=== PATIENT | female | born 1940 | race Caucasian/White ===

== ENCOUNTER 2021-02-26 20:31 | Inpatient (IN) | payer MEDICARE, OTHER ==
[~2021-02-26] VITALS: Ht 167.6 cm; Wt 59.1 kg
--- NOTE | 2021-02-26 22:37 | PHYS DOC ---
Past History Past Medical History: Arthritis, COPD Past Medical History Severe osteoporosis, insomnia Past Surgical History: Hip Replacement, Knee Replacement Additional Past Surgical Histo: L HIP REPAIR R HIP REPAIR Smoking: Cigarettes General Adult EDM: Chief Complaint: MECHANICAL FALL HPI: HPI: .. " Fell.. and hurt my wrist..Lt. .. I was on my walker.. and arnold tripped.. ".."Just have been home a few days.. I had been in rehab.. after my hip surgery..." Patient is a 80 year old female who presents with above hx and complaints trip, fall and Lt. wrist injury. Patient has an obvious closed fracture left wrist. Patient left hand distal cap refill, sensation is equal to her right hand. Injury occurred just prior to arrival. Patient states he was not dizzy, had syncope or had any dysrhythmia prior to the fall. Patient states she was using her walker. Patient denies hitting her head or any neuro changes. is at bedside states her mental status is at baseline. Patient is right-hand dominant. During the exam of patient in the hallway is noted that she had tenderness on her left hip and pelvis area. X-rays did reveal a ramus fracture. Patient's distal sensation in her left leg was equal to her right leg. Movement of left leg did increase pain in her pelvic area. Patient has history of COPD and tobacco use.. History of insomnia and marked osteopenic. Patient normally follows with Dr. Stern as a primary and for any orbital repair follows with at [facility] on the [place]. Review of Systems: Review of Systems: Constitutional: Denies fever or chills Eyes: Denies change in visual acuity HENT: Denies nasal congestion or sore throat Respiratory: Denies cough or shortness of breath Cardiovascular: Denies chest pain or edema GI: Denies abdominal pain, nausea, vomiting, bloody stools or diarrhea : Denies dysuria Musculoskeletal: Complains of left wrist fracture and the left hip and pelvis pain Integument: Denies rash Neurologic: Denies headache, focal weakness or sensory changes Endocrine: Denies polyuria or polydipsia Lymphatic: Denies swollen glands Psychiatric: Denies depression or anxiety Family History: Family History: Noncontributory to presentation Current Medications: Current Meds: See nursing for home meds Allergies: Allergies: Allergic to latex, penicillin and Ambien Physical Exam: PE: Constitutional: in acute distress, non-toxic appearance. [] HENT: Normocephalic, atraumatic, bilateral external ears normal, oropharynx moist, no oral exudates, nose normal. [] Eyes: PERRLA, EOMI, conjunctiva normal, no discharge. [] Neck: Normal range of motion, no tenderness, supple, no stridor. [] Cardiovascular:Heart rate regular rhythm, no murmur, PMI slightly to the left Lungs & Thorax: Bilateral breath sounds equal apex with scattered wheezes on auscultation [] Abdomen: Bowel sounds normal, soft, no tenderness, no masses, no pulsatile masses. Old surgery scar Skin: Warm, dry, no erythema, no rash. Poor turgor. Contusion ecchymosis left wrist contusion ecchymosis right knee and left hip Back: No tenderness, no CVA tenderness. [] Extremities: Marked left wrist and left hip tenderness, no cyanosis, no clubbing, , contusion right knee. Old surgery scars right knee, right hip Neurologic: Alert and oriented X 3, moves all extremities but limited in areas of fractures, distal sensory, no focal deficits noted. [] Psychologic: Affect anxious, judgement normal, mood normal. [] Current Patient Data: Vital Signs: Vital Signs Date Time Temp Pulse Resp B/P (MAP) Pulse Ox O2 Delivery O2 Flow Rate FiO2 02/26/21 21:46 97.8 69 20 142/100 97 EKG: EKG: [] Radiology/Procedures: Radiology/Procedures: [[address] [address] IMAGING REPORT Signed PATIENT: HEBER TAVERASNACCOUNT: [id number] : 1940 LOCATION: ER AGE: 80 SEX: F EXAM STATUS: REG ER ORD. PHYSICIAN: BERNICE ALFORD MD REASON: FALL PROCEDURE: LEFT FEMUR XRAY EXAMINATION: Left hip, left femur and left wrist radiographs. VIEWS: 3 views of the left hip, 4 views of the left femur and 3 views of the left wrist COMPARISON: None INDICATION:80 years, Female, fall. FINDINGS: Left hip: Acute displaced fracture of the left superior and inferior pubic rami. Severe left hip osteoarthritis. Right hip arthroplasty. Moderate to severe bilateral sacroiliac joints osteoarthritis. Severe pubis symphysis osteoarthritis. Diffuse osteopenia. No dislocation or subluxation. Popcorn calci fication in the right hemipelvis, likely related to calcified uterine fibroid. Left femur: No acute fracture, dislocation or subluxation. Total knee arthroplasty without hardware failure. Diffuse osteopenia. Mild soft tissue swelling. Left wrist: Acute displaced impacted and comminuted distal radial fracture with extension to the articular surface. No dislocation or subluxation. Diffuse soft tissue swelling about the wrist. Severe first carpometacarpal osteoarthritis. IMPRESSION: 1. Acute displaced fracture of the left superior and inferior pubic rami. 2. Acute displaced impacted and comminuted distal radial fracture Electronically signed by: Jeremy Dhillon MD (02/26/2021 10:38 PM) [facility] DICTATED AND SIGNED BY: JEREMY DHILLON MD DATE: 02/26/212229 CC: BERNICE ALFORD MD; MARISSA STERN MD ~[facility]0 0 ][place] [address] IMAGING REPORT Signed PATIENT: HEBER TAVERASNACCOUNT: [id number] : 1940 LOCATION: [address] [place] [address] AGE: 80 SEX: F EXAM STATUS: ADM IN ORD. PHYSICIAN: BERNICE ALFORD MD REASON: fall PROCEDURE: PORTABLE CHEST 1V EXAM: XR CHEST 1V 02/26/2021 12:04 AM CLINICAL INDICATION: Fall COMPARISON: None TECHNIQUE: AP upright view of the chest FINDINGS: The heart appears normal in size. There are calcifications the thoracic aorta. The lungs are hyperexpanded. There are chronic interstitial changes. Calcified granulomas with adjacent scarring seen in the left apex. There is no pleural effusion or pneumothorax. No acute osseous abnormality. IMPRESSION: 1. No acute cardiopulmonary abnormality. 2. Sequela of granulomatous disease with calcified granulomas and scarring in the left apex. 3. Findings of COPD. Electronically signed by: Diamond Campo MD (02/27/2021 1:38 AM) [id number] DICTATED AND SIGNED BY: DIAMOND CAMPO MD DATE: 02/27/21 0136 CC: KY SIMMONS MD; BERNICE ALFORD MD; MARISSA STERN MD ~[facility]0 0 Heart Score: C/O Chest Pain: N/A HEART Score for Chest Pain: HEART Score for Chest Pain Response (Comments) Value History Slighlty/Non-Suspicious 0 ECG Normal 0 Age > 65 2 Risk Factors 1 or 2 Risk Factors 1 Troponin < Normal Limit 0 Total 3 Risk Factors: Risk Factors: DM, Current or recent (<one month) smoker, HTN, HLP, family h istory of CAD, obesity. Risk Scores: Score 0 - 3: 2.5% MACE over next 6 weeks - Discharge Home Score 4 - 6: 20.3% MACE over next 6 weeks - Admit for Clinical Observation Score 7 - 10: 72.7% MACE over next 6 weeks - Early Invasive Strategies Course & Med Decision Making: Course & Med Decision Making Pertinent Labs and Imaging studies reviewed. (See chart for details) Patient and requesting patient be transferred to [facility] for pain management and orthopedic consult. Declined transfer to any other hospital in area. Would agree to admission here until bed would become available at [facility]. [facility] transfer Dr. Weldon and [facility]' coordinator advised no hospital beds available and the entire [facility] systems. Transfer declined at this time. Dr. Simmons advised he would accept patient until possible opening of bed at [facility]. For pain management. Impression: 1. Trip and fall 2. Comminuted fracture left radius 3. Left pelvic displaced ramus fracture 4. Mild anemia 11.5 5. Mild elevation alk phos 145 6. Malnutrition albumin 2.8 7. History of COPD and tobacco use 8. Marked Osteopenia [] Dragon Disclaimer: Dragon Disclaimer: This electronic medical record was generated, in whole or in part, using a voice recognition dictation system. Departure Departure: Referrals: MARISSA STERN MD (PCP) Scripts Oxycodone Hcl/Acetaminophen (PERCOCET 5-325 MG TABLET ) 1 Each Tablet 1 TAB PO PRN Q6HRS PRN for PAIN, #30 TAB Prov: BERNICE ALFORD MD 02/26/21 Dragon Disclaimer This chart was dictated in whole or in part using Voice Recognition software in a busy, high-work load, and often noisy Emergency Department environment. It may contain unintended and wholly unrecognized errors or omissions. BERNICE ALFORD MD Feb 26, 2021 22:37
--- NOTE | 2021-02-26 22:40 | RAD ---
EXAMINATION: Left hip, left femur and left wrist radiographs. VIEWS: 3 views of the left hip, 4 views of the left femur and 3 views of the left wrist COMPARISON: None INDICATION:80 years, Female, fall. FINDINGS: Left hip: Acute displaced fracture of the left superior and inferior pubic rami. Severe left hip oste oarthritis. Right hip arthroplasty. Moderate to severe bilateral sacroiliac joints osteoarthritis. Se deidre pubis symphysis osteoarthritis. Diffuse osteopenia. No dislocation or subluxation. Popcorn calci fication in the right hemipelvis, likely related to calcified uterine fibroid. Left femur: No acute fracture, dislocation or subluxation. Total knee arthroplasty without hardware f ailure. Diffuse osteopenia. Mild soft tissue swelling. Left wrist: Acute displaced impacted and comminuted distal radial fracture with extension to the sally cular surface. No dislocation or subluxation. Diffuse soft tissue swelling about the wrist. Severe fi rst carpometacarpal osteoarthritis. IMPRESSION: 1. Acute displaced fracture of the left superior and inferior pubic rami. 2. Acute displaced impacted and comminuted distal radial fracture Electronically signed by: Pavan Dhillon MD (02/26/2021 10:38 PM) [facility]
[2021-02-26] MEDS ORDERED: oxyCODONE/APAP 5/325 1 TAB TABLET PO ONE (22:45)
[2021-02-26] MEDS ORDERED: OXYC1TAB15 PO (22:52)
[2021-02-26] MEDS ORDERED: IV RINGERS SOLUTION,LACTATED 1,000 ML IV SCH (23:30)
[2021-02-26] MEDS ORDERED: ONDANSETRON PF 4 MG/2 ML VIAL. IVP PRN (23:45)
[2021-02-26] MEDS ORDERED: oxyCODONE/APAP 5/325 1 TAB TABLET PO PRN (23:45)
[2021-02-26] MEDS ORDERED: ACETAMINOPHEN 325 MG TABLET PO PRN (23:45)
--- NOTE | 2021-02-27 00:46 | EKG ---
[address] [address] Test Date: 2021-02-27 Test Time: 00:17:01 Pat Name: AIXA TAVERAS Department: Room: Gender: F Scrub Woman: : 1940 Requested By: BERNICE ALFORD Order Number: [id number] Reading MD: Measurements Intervals [place] Rate: 100 P: 46 TX: 130 QRS: 37 QRSD: 98 T: 26 QT: 348 QTc: 452 Interpretive Statements SINUS RHYTHM R-S TRANSITION ZONE IN V LEADS DISPLACED TO THE RIGHT OTHERWISE NORMAL ECG RI6.02 No previous ECG available for comparison
[2021-02-27 00:52] LABS: BASO % 0 % (0-3); EOS % 0 % (0-3); HEMOGLOBIN 11.5 g/dL (12.0-15.5); LYMPH # 0.5 x10^3/uL (1.0-4.8); LYMPH % 5 % (24-48); MEAN CORPUSCULAR HEMOGLOBIN 28 pg (25-35); MEAN CORPUSCULAR HGB CONC 33 g/dL (31-37); MEAN CORPUSCULAR VOLUME 84 fL (79-100); MONO # 0.4 x10^3/uL (0.0-1.1); MONO % 4 % (0-9); NEUT # 9.2 x10^3uL (1.8-7.7); NEUT % 90 % (31-73); PLATELET COUNT 331 x10^3/uL (140-400); RED BLOOD COUNT 4.17 x10^6/uL (3.50-5.40); RED CELL DISTRIBUTION WIDTH 15.3 % (11.5-14.5); WHITE BLOOD COUNT 10.2 x10^3/uL (4.0-11.0)
[2021-02-27 00:59] LABS: CALCIUM 8.4 mg/dL (8.5-10.1); CREATININE 0.8 mg/dL (0.6-1.0); GFR 69.2
[2021-02-27 01:12] LABS: ALBUMIN 2.8 g/dL (3.4-5.0); DIRECT BILIRUBIN 0.1 mg/dL (0.0-0.2); MAGNESIUM 1.9 mg/dL (1.8-2.4); TOTAL BILIRUBIN 0.4 mg/dL (0.2-1.0); TOTAL PROTEIN 6.5 g/dL (6.4-8.2)
[2021-02-27 01:27] VITALS: BP 147/77
--- NOTE | 2021-02-27 01:32 | NUR ---
PT ADMITTED TO [facility] VIA EMS ACCOMPANIED BY NURSING COMIC BOOK WRITER. PT ASSITED X4 FROM GURNEY TO BED. PT AOX4. PT IS POOR HISTORIAN AND CAN NOT REMEMBER HOME MEDICATION LIST. PT STATE "MY WILL HAVE HIS LIST, BUT HE WILL BE ASLEEP TILL MORNING." PT HAS NO COMPLAINTS OF PAIN AT THIS TIME. POC DISCUSSED W/ VERBALIZED UNDERSTANDING. PT RESTING COMFORTABLY IN BED W/ CALL LIGHT IN REACH.
--- NOTE | 2021-02-27 01:40 | RAD ---
EXAM: XR CHEST 1V 02/26/2021 12:04 AM CLINICAL INDICATION: Fall COMPARISON: None TECHNIQUE: AP upright view of the chest FINDINGS: The heart appears normal in size. There are calcifications the thoracic aorta. The lungs a re hyperexpanded. There are chronic interstitial changes. Calcified granulomas with adjacent scarring seen in the left apex. There is no pleural effusion or pneumothorax. No acute osseous abnormality. IMPRESSION: 1. No acute cardiopulmonary abnormality. 2. Sequela of granulomatous disease with calcified granulomas and scarring in the left apex. 3. Findings of COPD. Electronically signed by: Diamond Campo MD (02/27/2021 1:38 AM) [id number]
[2021-02-27] MEDS: IPRATRPIUM/ALBUTEROL 0.5/2.5MG 3 ML NEBU. NEB SCH ×3 (08:00→16:00)
[2021-02-27] MEDS ORDERED: oxyCODONE/APAP 5/325 1 TAB TABLET PO PRN (09:15)
[2021-02-27] MEDS: CALCIUM CARB/VIT D3 500/200 TABLET PO SCH ×2 (10:17→17:14)
[2021-02-27] MEDS: CHOLECALCIFEROL (VITAMIN D3) 1,000 UNIT TABLET PO SCH (10:17)
[2021-02-27 11:19] VITALS: BP 106/70
--- NOTE | 2021-02-27 13:33 | NUR ---
NURSING NOTE SPOKE WITH DR ALBARADO TO HAVE HIM REVIEW PT XRAY, STATES HE DOES NOT THINK PT NEEDS SURGERY, TO SPLINT AND FOLLOW UP OUTPATIENT WITH HER ORTHOPEDIC DOCTOR. PAIN CONTROL. PT DTR FREDY AND AIDA REFUSING REHAB OR INTERMEDIATE FACILITY. DR SIMMONS NOTIFIED. PLAN TO DC HOME WITH HOME HEALTH TOMORROW. GREER VEGA.
--- NOTE | 2021-02-27 14:00 | NUR ---
NURSING NOTE WEIGHT BEARING ESTHER PER DR ALBARADO, WEIGHT BEARING TOLERATED. GREER VEGA.
[2021-02-27] MEDS ORDERED: OXYB5TAB10 PO (14:39)
[2021-02-27] MEDS ORDERED: LEVO75CA4 PO (14:39)
[2021-02-27] MEDS ORDERED: DOXY100C3 PO (14:39)
[2021-02-27] MEDS ORDERED: LACT1CAP6 PO (14:39)
[2021-02-27 15:59] VITALS: BP 123/51
--- NOTE | 2021-02-27 17:34 | NUR ---
NURSING NOTE ORTHOPEDIC PT HAS FOLLOW UP ALREADY SCHEDULED PRIOR TO THIS HOSPITALIZATION WITH DR COYNE AT [facility] [phone] ON . PT DTR WOULD LIKE US TO CALL AND SEE ABOUT MOVING HER APPT CLOSER. THIS NURSE ATTEMPT TO CALL, OFFICE CLOSED. WILL FOLLOW UP TOMORROW AND PASS ALONG IN REPORT. GREER VEGA.
--- NOTE | 2021-02-27 19:20 | HP ---
ADMIT DATE: 02/27/2021 HISTORY OF PRESENT ILLNESS: A 80-year-old female brought in through the emergency room. Apparently, she tripped at her walker and ____ few days, had been in rehab after some hip surgery. However, the patient when she came in through the Emergency Room, noted a closed fracture of her left wrist. The patient otherwise is right-hand dominant, but had this fracture of the left wrist. She was also noted to have some problems with her inferior and superior rami, where they were fractured as well. Her was at the base of her bed and is very attentive. The patient has severe tenderness to her left hip and x-rays did reveal a ramus fracture. The patient had normal sensation to her right leg and left leg, did have increased pain in her pelvic area as well as other factors as noted above. PAST MEDICAL HISTORY: Insomnia. She has a history of osteopenia, throat cancer, hypothyroidism, influenza vaccination up to date. ALLERGIES: TO LATEX, PENICILLIN, AND AMBIEN. SOCIAL HISTORY: No smoking, alcohol or drug use. Full code. REVIEW OF SYSTEMS: The patient outside of her hip pain and wrist pain, denies any chest pain, shortness of breath, abdominal pain. Denies any melena, hematochezia, hematemesis, and neurologically baseline for her, seems like a very pleasant patient. PHYSICAL EXAMINATION: GENERAL: On exam, this is a pleasant white female, in moderate amount of distress. The patient otherwise is a pleasant female. Speech fluent, spontaneous, appropriate. VITAL SIGNS: The patient's blood pressure is that of 142/100, came down to 123/51, respiratory rate 16, pulse 90, afebrile, 95% on room air. HEENT: Her head was atraumatic, normocephalic. Eyes: PERRLA. Mouth and throat normal. NECK: Supple. LUNGS: Clear. CARDIOVASCULAR: Regular sinus rhythm, S1, S2. ABDOMEN: Soft, nontender, no rebounding or any guarding. Positive bowel sounds. No hepatosplenomegaly noted. EXTREMITIES: No clubbing, cyanosis, nor edema. NEUROLOGIC: The patient was alert and baseline and oriented x3. The patient had her left wrist bandaged in a splint and of course had pain in her hips. The patient's x-rays showed acute displaced fracture of the left superior and inferior pubic rami. There was an acute, displaced, impacted and comminuted distal radial fracture as noted. The comminuted distal radial fracture was relayed on to Dr. Cabrera, noted orthopedic surgeon, who felt the patient was stable in the splint and could be seen as an outpatient. The right hip x-ray demonstrated arthroplasty, moderate to severe bilateral sacroiliac joint osteoarthritis and severe pubic ramus osteoarthritis, diffuse osteopenia noted. LABORATORY DATA: The patient's labs were white count 10, hemoglobin 11 and hematocrit 35. The patient's sodium and potassium are 136 and 4. Glucose 120. Albumin low at 2.8. TSH was normal. Serology shows COVID negative. IMPRESSION: Acute displaced fracture of the left superior and inferior pubic rami, acute displaced impacted and comminuted distal radial fracture, severe protein malnutrition. The patient will be monitored carefully and make further evaluation on her as indicated, as noted. Discussed case with Dr. Cabrera. Chest x-ray showed some old granulomatous disease, but nothing consistent with any acute findings noted. PITO/PEPITO DR: Jasmin TID: [id number]
[2021-02-27] MEDS ORDERED: IPRATRPIUM/ALBUTEROL 0.5/2.5MG 3 ML NEBU. NEB PRN (19:30)
[2021-02-27 19:53] VITALS: BP 122/60
[2021-02-27] MEDS: OXYBUTYNIN CHLORIDE 5 MG TABLET PO SCH (20:40)
[2021-02-27] MEDS: LACTOBACILLUS RHAMNOSUS GG 1 CAPSULE. PO SCH (20:41)
[2021-02-27] MEDS: traMADol 50 MG TABLET PO PRN (20:41)
[2021-02-28] MEDS ORDERED: LEVOTHYROXINE 75 MCG TABLET PO SCH (06:00)
[2021-02-28] MEDS: traMADol 50 MG TABLET PO PRN ×2 (06:08→12:54)
[2021-02-28 06:23] VITALS: BP 134/75
[2021-02-28] MEDS: OXYBUTYNIN CHLORIDE 5 MG TABLET PO SCH ×2 (07:30→12:54)
[2021-02-28] MEDS: CALCIUM CARB/VIT D3 500/200 TABLET PO SCH (07:30)
[2021-02-28] MEDS: LACTOBACILLUS RHAMNOSUS GG 1 CAPSULE. PO SCH (07:30)
[2021-02-28] MEDS: CHOLECALCIFEROL (VITAMIN D3) 1,000 UNIT TABLET PO SCH (07:30)
--- NOTE | 2021-02-28 09:58 | DISCH ---
HOME HEALTH DISCHARGE/MEDS DISCHARGE INFORMATION: Discharge Date: Feb 28, 2021 Final Diagnosis: Problems Medical Problems: (1) Pelvic fracture Status: Acute (2) Wrist fracture Status: Acute Condition on Discharge: Stable HOME HEALTH: Face to Face: I certify this patient is under my care and that I, or a nurse practitioner or physician's preschool teacher assistant working with me, had a face to face encounter that meets the physician face to face encounter requirements with this patient on February 28, 2021. Medical Condition(s): Dementia, FX Retirement For: Assess Cardiopulm Status, Assess & Educate Safety, Assess/Skilled Observatio, Medication Management, Pain Management Physical Therapy For: Evalulation/Treatment Occupational Therapy For: Evaluation/Treatment Homebound Status Met By: Poor coordination w/ amb., Unsteady balance w/ amb,, Extreme weakness w/ amb., Poor cognition, Unable to negotiate home POST DISCHARGE ORDERS: Activity Instructions for Disc: Activity as tolerated DIET AFTER DISCHARGE: Regular CERTIFICATION STATEMENT: Certification Statement: Based on the above finding, I certify that this patient is confined to the home and needs intermittent halfway care, physical therapy and/or speech therapy, or continues to need occupational therapy.~ This patient is under my care, and I have initiated the establishment of the plan of care.~ This patient will be followed by myself or a community physician who will periodically review the plan of care. DISCHARGE MEDICATIONS: Home Meds Reported Medications Lactobacillus Acidophilus (PROBIOTIC) 1 Each Capsule, 1 CAP PO BID for . for 10 Days, #20 CAP 0 Refills 02/27/21 Oxybutynin Chloride (OXYBUTYNIN CHLORIDE) 5 Mg Tablet, 1 TAB PO TID for ., #60 TAB 11 Refills 02/27/21 Levothyroxine Sodium (Levothyroxine) 75 Mcg Capsule, 75 MCG PO DAILY for THYROID, CAP 02/27/21 Discontinued Reported Medications Doxycycline Hyclate (DOXYCYCLINE HYCLATE) 100 Mg Capsule, 1 CAP PO BID for ., #14 CAP 02/27/21 [place] SIMMONS MD Feb 28, 2021 09:58
[2021-02-28 10:07] VITALS: BP 104/65
--- NOTE | 2021-02-28 11:35 | NUR ---
NURSING NOTE EDUCATION FOR FAMILY PT DICKSON MET THIS RN AT FRONT DOOR TO DRESS CUTTER HER PAIN MEDICATION PRESCRIPTION TO FILL IT ON YANCY PRIOR TO PT DISCHARGING HOME. PT GIVEN EXTENSIVE EDUCATION ABOUT IMPORTANCE OF X2 ASSIST TRANSFERS AND THE IMPORTANCE OF PT NOT LAYING IN BED ALL DAY FOR STRENGTHENING PURPOSES. PT GIVEN DISCHARGE INFORMATION AND FINGER EXERCISE FROM JOHN FOR HER IMMOBILIZED WRIST. PT GIVEN PACKET FOR ORTHO FOLLOW UP WITH XRAY CD AND REPORTS. ST [facility] CONSULTED PER HEIDY BOSS REFERRAL SENT. THEY WILL CONTACT PT. PT STATES THEY HAVE A HOSPITAL BED, STAIR LEFT, AND WALK IN SHOWER ALREADY IN THEIR HOME AND IT IS READY FOR PT TO COME HOME. EMS TRANSFER ORGANIZED AND SET UP FOR 3PM TODAY TRANSFER HOME. GREER VEGA.
--- NOTE | 2021-02-28 12:06 | NUR ---
NURSING NOTE ORTHO APPOINTMENT AT 1:15PM [address] [place] [address] [address] ON 6TH FLOOR
--- NOTE | 2021-02-28 15:07 | NUR ---
NURSING NOTE DISCHARGE PT DISCHARGED HOME VIA EMS ACCOMPANIED BY EMS PERSONNEL. PT DICKSON CALLED BY THIS RN TO NOTIFY HIM OF DISCHARGE. PT GIVEN EXTENSIVE DISCHARGE INSTRUCTION. PT HAS FOLLOW UP WITH HER ORTHO DOCTOR ON WEDNESDAY. PLEASE SEE OTHER NOTES FROM THIS RN. GREER VEGA.
== END 2021-02-28 15:09 | disposition home health service (06) | DRG 542 ==
LOC: ER 20:31 → 1 SOUTH 02-27 01:08 → INTOOBSV 02-27 01:08 → OBSVTOIN 02-27 01:09
PROVIDERS: ADMIT Family Medicine; ATTEND Family Medicine
PROC: 2W3DX1Z Immobilization of Left Lower Arm using Splint (ICD-10-PCS; principal; 2021-02-27)
DX: M80.052A Age-related osteoporosis with current pathological fracture, left femur, initial encounter for fracture (principal); E43 Unspecified severe protein-calorie malnutrition; D64.9 Anemia, unspecified; D71 Functional disorders of polymorphonuclear neutrophils; E03.9 Hypothyroidism, unspecified; M80.032A Age-related osteoporosis with current pathological fracture, left forearm, initial encounter for fracture; J44.9 Chronic obstructive pulmonary disease, unspecified; W01.0XXA Fall on same level from slipping, tripping and stumbling without subsequent striking against object, initial encounter; Z85.819 Personal history of malignant neoplasm of unspecified site of lip, oral cavity, and pharynx; Z87.891 Personal history of nicotine dependence; Z96.649 Presence of unspecified artificial hip joint; Z96.659 Presence of unspecified artificial knee joint; Z88.0 Allergy status to penicillin; Z91.040 Latex allergy status; Z68.21 Body mass index [BMI] 21.0-21.9, adult; Z20.822 Contact with and (suspected) exposure to COVID-19; Y93.89 Activity, other specified; Y92.89 Other specified places as the place of occurrence of the external cause; Y99.8 Other external cause status
CPT/HCPCS: 36415; 71045; 73110; 73502; 73552; 80048; 80076; 82550; 83735; 83880; 84443; 84484; 85025; 87426; 93005; G0238; G0378; G0379; U0003; 97535

== ENCOUNTER → 2021-03-15 | Emergency (ER) | payer MEDICARE, OTHER ==
[~2021-03-15] VITALS: Ht 167.6 cm; Wt 61.8 kg
[~2021-03-15] MED LIST: ADENOSINE 6 MG/2 ML VIAL IV ONE; ASPIRIN CHEWABLE 81 MG TABLET. PO ONE; DOXY100C3 PO; HEPARIN 25,000UTS/250ML PREMIX 250 ML IV ONE; HEPARIN 25,000UTS/250ML PREMIX 250 ML IV PRN; HEPARIN for IV BOLUS 10,000 UNIT/10 ML VIAL. IV ONE; HEPARIN for IV BOLUS 10,000 UNIT/10 ML VIAL. IV PRN; IOHEXOL 300 MG/ML 75 ML VIAL. IV ONE; IV NORMAL SALINE 1,000ML 1,000 ML IV ONE; IV NORMAL SALINE 250ML 250 ML ONE; IV RINGERS SOLUTION,LACTATED 1,000 ML IV ONE; LACT1CAP6 PO; LEVO75CA4 PO; OXYB5TAB10 PO; OXYC1TAB15 PO
--- NOTE | 2021-03-15 17:46 | PHYS DOC ---
Past History Past Medical History: Arthritis, COPD Past Surgical History: Hip Replacement, Knee Replacement Additional Past Surgical Histo: L HIP REPAIR R HIP REPAIR Smoking: Cigarettes Alcohol Use: None Adult General HPI HPI Patient is a 80-year-old female presenting from home via EMS for shortness of breath. Patient has complicated recent medical history. She is currently recovering from a nonoperable left pelvic fracture and also has a splinted left forearm from recent closed fracture. She was at home and utilizing the commode when upon transfer, she became short of breath and more confused. Decision was made to call EMS at this point. On arrival, patient was found to be hypoxic on room air at 83% and profoundly tachycardic in the 150s but otherwise hemodynamically stable. Patient was given x1 DuoNeb and transferred to our facility for evaluation due to numerous hospitals being on full divert Review of Systems Review of Systems Fourteen body systems of review of systems have been reviewed. See HPI for pertinent positives and negative responses, other harris all other systems are negative, non-pertinent or non-contributory Allergies Allergies Allergies Coded Allergies Type Severity Reaction Last Updated Verified latex Allergy Unknown 02/26/21 Yes penicillin V Allergy Unknown 02/26/21 Yes zolpidem Allergy Unknown 02/26/21 Yes Physical Exam Physical Exam Constitutional: Age-appropriate female in moderate distress and appears anxious HENT: Normocephalic, atraumatic, bilateral external ears normal, oropharynx dry with poor dentition, no oral exudates, nose normal. Eyes: PERRLA, EOMI, conjunctiva normal, no discharge. Neck: Normal range of motion, no tenderness, supple, no stridor. Cardiovascular: Heart rate tachycardic, sinus rhythm, no murmurs rubs or gallops Lungs & Thorax: Increased work of breathing, accessory muscle use noted in neck, scant wheezes to bilateral lower lobes Abdomen: Bowel sounds normal, soft, no tenderness, no masses, no pulsatile masses. Nonsurgical abdomen, no peritoneal signs Skin: Warm, dry, no erythema, no rash. Back: No tenderness, no CVA tenderness. Extremities: Tenderness present to left hip due to prior pelvic fracture, left upper extremity in thumb spica cast present on arrival, no cyanosis, no clubbing, no edema. Neurologic: Alert and oriented X 3, grossly normal motor & sensory function, no focal deficits noted. Psychologic: Anxious affect and mood Current Patient Data Vital Signs Vital Signs Date Time Temp Pulse Resp B/P (MAP) Pulse Ox O2 Delivery O2 Flow Rate FiO2 03/15/21 18:55 96.6 148 34 125/92 (103) 98 Nasal Cannula 4.0 EKG EKG EKG ordered and interpreted by myself at 1750 hrs. as sinus tachycardia at 156 bpm, unremarkable intervals, no axis deviation, no STEMI Radiology/Procedures Radiology/Procedures [] Heart Score C/O Chest Pain: Yes HEART Score for Chest Pain: HEART Score for Chest Pain Response (Comments) Value History Moderately Suspicious 1 ECG Nonspecific Repolarizatio 1 Age > 65 2 Risk Factors >3 Risk Factors or Hx CAD 2 Total 6 Risk Factors: Risk Factors: DM, Current or recent (<one month) smoker, HTN, HLP, family history of CAD, obesity. Risk Scores: Risk Factors: DM, Current or recent (<one month) smoker, HTN, HLP, family history of CAD, obesity. Course & Med Decision Making Course & Med Decision Making Airway patent, increased work of breathing, vitals obtained concerning for hypoxia on room air requiring supplemental oxygen and tachypnea HPI limited, physical examination obtained. Difficulty obtaining IV access peripherally requiring use of ultrasound-guided peripheral line placement to right AC At this time in care, my shift was ending. I gave comprehensive signout to oncoming physician. We both evaluated patient together and reviewed physical exam findings and limited ER orders put in so far Please defer to Dr. James's documentation regarding future care of patient while in ER Dragon Disclaimer Dragon Disclaimer This electronic medical record was generated, in whole or in part, using a voice recognition dictation system. Departure Departure: Impression: Primary Impression: Pulmonary embolism Additional Impression: Fracture of pelvis Disposition: 02 [facility] ([facility]) Condition: GUARDED Referrals: MARISSA STERN MD (PCP) Problem Qualifiers CAS BOOTH DO Mar 15, 2021 17:46
--- NOTE | 2021-03-15 17:50 | EKG ---
[address] [address] Test Date: 2021-03-15 Test Time: 17:43:08 Pat Name: AIXA TAVERAS Department: Room: Gender: F Floodplain Manager: MAGDALENA : 1940 Requested By: CAS BOOTH Order Number: [id number] Reading MD: Measurements Intervals [place] Rate: 156 P: -90 SD: 82 QRS: 47 QRSD: 114 T: 26 QT: 280 QTc: 459 Interpretive Statements SINUS TACHYCARDIA NO SPECIFIC ECG ABNORMALITIES RI6.02 No previous ECG available for comparison
[2021-03-15 18:22] LABS: BASO # 0.1 x10^3/uL (0.0-0.2); BASO % 1 % (0-3); EOS # 0.1 x10^3/uL (0.0-0.7); EOS % 1 % (0-3); HEMATOCRIT 39.2 % (36.0-47.0); HEMOGLOBIN 12.8 g/dL (12.0-15.5); LYMPH # 1.1 x10^3/uL (1.0-4.8); LYMPH % 12 % (24-48); MEAN CORPUSCULAR HEMOGLOBIN 28 pg (25-35); MEAN CORPUSCULAR HGB CONC 33 g/dL (31-37); MEAN CORPUSCULAR VOLUME 87 fL (79-100); MONO # 0.3 x10^3/uL (0.0-1.1); MONO % 3 % (0-9); NEUT # 7.6 x10^3uL (1.8-7.7); NEUT % 83 % (31-73); PLATELET COUNT 451 x10^3/uL (140-400); RED BLOOD COUNT 4.52 x10^6/uL (3.50-5.40); RED CELL DISTRIBUTION WIDTH 16.1 % (11.5-14.5); WHITE BLOOD COUNT 9.1 x10^3/uL (4.0-11.0)
[2021-03-15 18:29] LABS: CALCIUM 9.3 mg/dL (8.5-10.1); GFR 53.5; POTASSIUM 3.8 mmol/L (3.5-5.1)
[2021-03-15 18:35] LABS: ALBUMIN/GLOBULIN RATIO 0.6 (1.0-1.7); MAGNESIUM 2.3 mg/dL (1.8-2.4); TOTAL BILIRUBIN 0.6 mg/dL (0.2-1.0); TOTAL PROTEIN 7.8 g/dL (6.4-8.2)
[2021-03-15 19:00] VITALS: BP 104/65
--- NOTE | 2021-03-15 21:01 | RAD ---
Study: CT chest, abdomen and pelvis with contrast INDICATION: Sepsis workup. COMPARISON: None. TECHNIQUE: Helical CT imaging performed of the chest, abdomen and pelvis after the intravenous admini stration of 60 cc Omnipaque 300. Coronal and sagittal reformats were obtained. One or more of the following individualized dose reduction techniques were utilized for this examinat ion: 1. Automated exposure control 2. Adjustment of the mA and/or kV according to patient size 3. Use of iterative reconstruction technique. FINDINGS: CT Chest: Severe pulmonary embolic burden to include saddle emboli and lobar involvement of all lung lobes. Ass ociated dilatation of the right heart chambers and leftward deviation of the interventricular septum in keeping with right heart strain. Multifocal calcified and noncalcified atheromatous plaque. Patent great vessel origins. No aortic ane urysm or dissection. No mediastinal or hilar adenopathy. Advanced emphysema. Spiculated soft tissue density emanating from the pleura at the anterior right up per lobe measuring approximately 3.7 cm transverse by 1.5 cm in width. Deformity and dense mineraliza tion of the adjacent second left rib. There is also increased density at the far anterior aspect of t he left first rib. Subtle fracture of the left third rib anteriorly favored subacute. There may be a few additional faint left-sided rib fractures. No displaced rib fracture on the right. Axillary lymph nodes are within normal limits. Exaggeration of thoracic kyphosis. Multifocal degenera tive changes. CT Abdomen/Pelvis: Nonmasslike, ill-defined increased attenuation at the posterior aspect of the hepatic dome, image 73 series 8 and image 19 series 7. A few gallstones. Mildly distended gallbladder without surrounding ed [place]. Mild dilatation of the intrahepatic biliary tree. The common duct is nondilated. Unremarkable pa ncreas and spleen. Nodular configuration of the lateral limb of the left adrenal gland. Multiple renal cystic foci, left larger than right. No hydronephrosis. Within normal limits bladder c onsidering streak artifact from a right hip arthroplasty. Senescent/chronic changes of the uterus wit h fibroids. No concerning adnexal abnormality. Much of the colon is collapsed. Small amount of incompletely formed stool within the more proximal co marisel. No locally aggressive wall thickening. Normal appendix. The small bowel is nonobstructed. Mild d istention of the stomach. No gastric wall emphysema. Extensive calcified and noncalcified atheromatous plaque. Likely associated stenosis at a few locatio ns such as along portions of the common iliac arteries, proximal aspect of the internal iliac arterie s, distal external iliac artery on the right, bilateral common femoral arteries and proximal right SF A. No suspicious lymph nodes based on size. Subacute, displaced fractures of the left obturator ring and left iliac bone. Sacral insufficiency fr acture on the left. Total right hip arthroplasty. Osteopenia, multifocal degenerative changes and exa ggeration of lumbar lordosis. IMPRESSION: CT Chest: 1. Severe pulmonary embolic burden with saddle emboli and involvement of the lobar arteries to all l melvi lobes. Corresponding right heart strain with dilatation of the right heart chambers and intervent ricular septal deviation. 2. Spiculated opacity abutting the pleura at the anterior left upper lobe measuring approximately 3. 7 x 1.5 cm with subjacent deformity and irregular attenuation of the second rib. Primary lung maligna ncy should be considered until proven otherwise given background advanced emphysema. If any outside i maging has been performed it would be useful to obtain. 3. A few subtle rib fractures on the left which may be subacute given subacute osseous trauma below the diaphragm. CT Abdomen/Pelvis: 1. Displaced, subacute obturator ring and iliac bone fractures on the left identified on the radiographs. Sacral insufficiency fracture on the left as well. 2. Chronic findings to include a few gallstones, renal cysts and extensive calcific atherosclerosis. Associated iliofemoral stenoses are not fully characterized by technique. FOR INTERNAL CODING PURPOSES Critical result: Findings discussed with Dr. James on 03/15/2021 at 8:40 PM. RESULT CODE: (C) Electronically signed by: NICO FIGUEROA MD (03/15/2021 8:58 PM) [facility]
[2021-03-16 06:22] LABS: BGAS PH 7.42 (7.35-7.45)
== END ==
LOC: ER 17:40
DX: S32.9XXA Fracture of unspecified parts of lumbosacral spine and pelvis, initial encounter for closed fracture (principal); I26.99 Other pulmonary embolism without acute cor pulmonale; J44.9 Chronic obstructive pulmonary disease, unspecified; R94.6 Abnormal results of thyroid function studies; F17.210 Nicotine dependence, cigarettes, uncomplicated; Z91.040 Latex allergy status; Z88.8 Allergy status to other drugs, medicaments and biological substances; Z88.0 Allergy status to penicillin; Z96.649 Presence of unspecified artificial hip joint; X58.XXXA Exposure to other specified factors, initial encounter; Y93.89 Activity, other specified; Y92.89 Other specified places as the place of occurrence of the external cause; Y99.8 Other external cause status
CPT/HCPCS: 36415; 71260; 74177; 80053; 82803; 83605; 83735; 84443; 84484; 85025; 85610; 85730; 93005; 96365; 99285; J1644; J1956; J3010; J7030; J7120; Q9967